=== PATIENT | male | born 1990 | race Caucasian/White ===

== ENCOUNTER 2025-06-19 11:29 | Observation (INO) ==
--- NOTE | 2025-06-19 11:43 | Emergency Department Note ---
Impression & Plan Syncope, Head injury, High serum chloride ED Provider Note NAME: GUEVARA [id number] ALEXIA AGE: 35 SEX: M : 1990 ARRIVES VIA: Ambulance INFORMANT: Patient ED PROVIDER(S): Jeffery Contreras DO CHIEF COMPLAINT: Possible seizures HPI: Patient is a 35-year-old male who presents to the ER after being seen and evaluated for fall last Sunday. Patient passed out and does not remember what happened.. He did hit his head. Since then on Sunday after being discharged he had some twitching of his arms. He was doing fine until today when he had 2 episodes where he had twitching of his bilateral arms and 1 leg. When this occurs he has no control over them. It lasts for several minutes and then resolves. He admits to a headache. No change or loss of vision. No chest pain or shortness of breath. No nausea, vomiting, or diarrhea. No neck pain. No other exacerbating or remitting factors. Headache ADDITIONAL HISTORY OBTAINED: Per HPI Chronic Medical/Social Conditions Affecting Care: Per HPI PAST MEDICAL HISTORY:See Below PAST SURGICAL HISTORY:See Below FAMILY HISTORY:See Below SOCIAL HISTORY:See Below HOME MEDICATIONS:See Below ALLERGIES:See Below VITALS:See Below PHYSICAL EXAMINATION: GENERAL: Sitting up in bed, alert, well appearing, well nourished, no distress, non-toxic EYE EXAM: normal conjunctiva. PERRL and EOM's intact. OROPHARYNX: no exudate, no erythema, lips, buccal mucosa, and tongue normal and mucous membranes are moist NECK: supple, no nuchal rigidity, no adenopathy, non-tender LUNGS: Clear to auscultation. Normal chest wall mechanics HEART: no murmurs, S1 normal and S2 normal ABDOMEN: abdomen soft, non-tender, normo-active bowel sounds, no masses, no rebound or guarding. BACK: Back is symmetrical on inspection and there is no deformity, no midline tenderness, no CVA tenderness. SKIN: no rashes and no bruising UPPER EXTREMITIES: upper extremities are grossly normal. LOWER EXTREMITIES: No pitting edema. NEURO EXAM: Normal sensorium, cranial nerves II-XII intact, normal speech, no weakness of arms, no weakness of legs. No drift. Finger to nose intact. Gross sensation intact. MEDICAL DECISION MAKING: Patient is a 35-year-old male who presents ER for the above-stated complaint. IV was established and blood work was obtained. Labs showed no significant leukocytosis or anemia. BMP with slightly elevated chloride at 109. LFTs bilirubin troponin and mag were unremarkable. Lipase was normal. CT of the head was negative. Chest x-ray unremarkable. He is complete neurologically intact. He was updated at bedside. Discussed case with [facility] neurology. They agreed with admission for complete workup including MRI and EEG. Patient and guardians were updated at bedside. Consults/Care Managements Discussions: Per [facility] Triage Nursing notes reviewed. Limited review of prior medical records performed Vital Signs: reviewed and remarkable for no significant abnormalities Differential diagnosis: Differential diagnosis includes etiologies such as infection, hypoglycemia, electrolyte abnormalities, cardiac sources, intracerebral event, trauma, toxicologic, neurologic, as well as others were entertained. ER treatment provided: See below Diagnostics interpreted by me include EKG and cardiac monitoring as listed below: -Cardiac Monitoring: An order was placed for continuous cardiac monitoring. The monitor shows a rate of 80 with sinus rhythm. -ECG: Sinus rhythm rate of 76 Normal axis No PVCs QTc 438 -Laboratory studies:Interpreted by me as stated above in MDM and shown below. Imaging studies: Xrays: As interpreted by me: Portable AP upright 1 view of the chest shows no focal infiltrate CTs show: CT head was negative per radiology Procedures:none Critical Care: None Past Med/Surg History Problem List (Updated 06/19/25 @ 14:57 by Jeffery Contreras DO) High serum chloride (Acute) Head injury (Acute) Syncope (Acute) Medical History Migraine headache without aura GERD (gastroesophageal reflux disease) Social History Smoking Status: Never smoker Preferred Language: Iranian Feels Safe at Home: Yes Allergies Allergies Allergy/AdvReac Type Severity Reaction Status Date / Time No Known Allergies Allergy Unverified 06/19/25 14:15 Home Meds Home Medications Medication Instructions Recorded Confirmed albuterol sulfate 90 mcg/actuation 2 puff inhalation QID PRN 06/19/25 06/19/25 aerosol inhaler Shortness Of Breath [id number] 250 2 tab PO BID PRN Headache 06/19/25 06/19/25 mg-250 mg-65 mg tablet budesonide-formoterol HFA 80 2 puff inhalation BID 06/19/25 06/19/25 mcg-4.5 mcg/actuation aerosol inhaler (Symbicort) clindamycin 1.2 %-benzoyl peroxide 1 applic topical HS 06/19/25 06/19/25 2.5 % topical gel with pump escitalopram oxalate 20 mg tablet 20 mg PO HS 06/19/25 06/19/25 escitalopram oxalate 5 mg tablet 5 mg PO HS 06/19/25 06/19/25 hydroxyzine pamoate 25 mg capsule 25 mg PO HS 06/19/25 06/19/25 hydroxyzine pamoate 50 mg capsule 50 mg PO HS 06/19/25 06/19/25 meclizine 25 mg chewable tablet 25 mg PO TID PRN Dizziness 06/19/25 06/19/25 topiramate 100 mg tablet 100 mg PO HS 06/19/25 06/19/25 topiramate 50 mg tablet 50 mg PO HS 06/19/25 06/19/25 Results & Data (ED) Vital Signs Vital Signs - 24 hr 06/19/25 11:34 06/19/25 11:39 06/19/25 13:58 Temperature 36.7 C Temperature Source Oral Pulse Rate 83 72 77 Pulse Rate [Apical] Pulse Rhythm [Apical] Pulse Strength [Apical] Respiratory Rate 16 23 Respiratory Effort / Characteristics Non-Labored Spontaneous Respiratory Depth Normal Respiratory Pattern Blood Pressure 119/84 119/84 Blood Pressure [Right Arm] Blood Pressure Mean 95 95 Blood Pressure Mean [Right Arm] Blood Pressure Position [Right Arm] Pulse Oximetry 96 99 Oxygen Delivery Method Room Air Sepsis Recent Fever Within 48 Hours No Sepsis New/Unexplained Change in Mental Status No Sepsis Action Taken by Nursing No Action Required 06/19/25 14:19 Temperature Temperature Source Pulse Rate Pulse Rate [Apical] 77 Pulse Rhythm [Apical] Regular Pulse Strength [Apical] Normal Respiratory Rate 16 Respiratory Effort / Characteristics Non-Labored Spontaneous Respiratory Depth Normal Respiratory Pattern Regular Blood Pressure Blood Pressure [Right Arm] 125/78 Blood Pressure Mean Blood Pressure Mean [Right Arm] 93 Blood Pressure Position [Right Arm] Lying Pulse Oximetry 100 Oxygen Delivery Method Room Air Sepsis Recent Fever Within 48 Hours Sepsis New/Unexplained Change in Mental Status Sepsis Action Taken by Nursing Laboratory Data 06/19/25 11:41 06/19/25 11:41 Lab Results 06/19/25 Range/Units 11:41 WBC 7.43 (4.8-10.8) K/ul RBC 4.88 (4.70-6.10) M/uL Hgb 14.8 (14.0-18.0) g/dl Hct 41.8 L (42.0-52.0) % MCV 85.7 (80.0-100.0) fL MCH 30.3 (25.0-34.0) pg MCHC 35.4 (32.0-36.0) g/dL RDW Std Deviation 41.5 (36.4-46.3) fL RDW Coeff of Keegan 13.3 (11.5-14.5) % Plt Count 298 (130-400) K/uL MPV 9.3 L (9.4-12.4) fL Immature Gran % (Auto) 0.1 % Neut % (Auto) 53.8 % Lymph % (Auto) 29.5 % [place] % (Auto) 10.4 % Eos % (Auto) 5.4 % Baso % (Auto) 0.8 % Neut # (Auto) 4.00 (1.40-6.50) K/uL Lymph # (Auto) 2.19 (1.20-3.40) K/uL [place] # (Auto) 0.77 H (0.11-0.59) K/uL Eos # (Auto) 0.40 (0.00-0.50) K/uL Baso # (Auto) 0.06 (0.00-0.20) K/uL Immature Gran # (Auto) 0.01 (0.01-0.20) K/uL Sodium 140 (136-145) mmol/L Potassium 3.9 (3.5-5.1) mmol/L Chloride 109 H (98-107) mmol/L Carbon Dioxide 24 (21-32) mmol/L Anion Gap 7 (3-11) BUN 12 (6-23) mg/dl Creatinine 0.99 (0.6-1.4) mg/dl Est Cr Clr Drug Dosing 112.1 ml/min eGFR 102.51 BUN/Creatinine Ratio 12.1 (10-20) Glucose 80 (70-99(Fasting)) mg/dl Calcium 8.9 (8.6-10.3) mg/dl Magnesium 2.1 (1.7-2.4) mg/dl Total Bilirubin 0.4 (0.2-1.0) mg/dl AST 21 (13-39) U/L ALT 26 (7-52) U/L Alkaline Phosphatase 102 (34-104) U/L Troponin I High Sens 2.3 (0-20) pg/ml Total Protein 8.0 (6.0-8.3) gm/dl Albumin 4.3 (3.4-5.0) gm/dl Globulin 3.7 (2.5-4.0) gm/dl Albumin/Globulin Ratio 1.2 (0.9-2) Lipase 20 (11-82) U/L Administered Medications Discontinued Medications Gadobutrol (Gadobutrol 65ml Vial) 10 ml IV ONCE ONE Stop: 06/19/25 14:50 Last Admin: 06/19/25 14:49 Dose: 10 ml Documented By: DP Imaging Data Radiologist's Impression: Head CT 06/19/25 11:36 CT head/brain wo con CLINICAL HISTORY: possible seizure. TECHNIQUE: Multiple axial CT images of the head were obtained without contrast. A dose lowering technique was utilized adhering to the principles of ALARA. CT DOSE: 625.8 mGy.cm COMPARISON: 06/12/2025 FINDINGS: No intracranial hemorrhage seen. No mass effect, midline shift, or hydrocephalus. No skull fracture seen. There is moderate mucosal thickening with a small amount of fluid at the maxillary sinuses. A few of the ethmoid air cells are opacified. IMPRESSION: 1. No acute intracranial findings. 2. Maxillary sinusitis. ACT 112: Negative or not required by law. The above report was generated using voice recognition software. It may contain grammatical, syntax or spelling errors. Electronically signed by: Chad Galindo M.D. 06/19/2025 12:06 PM Chest X-Ray 06/19/25 11:37 XR chest 1V portable CLINICAL HISTORY: Chest pain, nonspecific COMPARISON STUDY: 06/12/2025 FINDINGS: Heart size and pulmonary vasculature are normal. No consolidation or pleural effusion. No pneumothorax. IMPRESSION: No acute findings. ACT 112: Negative or not required by law. Electronically signed by: Chad Galindo M.D. 06/19/2025 12:18 PM Discharge Plan Visit Data Chief Complaint: Headache Stated Complaint: TREMORS, MIAGRAINE ED Provider: Jeffery Contreras Discharge Problem: Syncope, Head injury, High serum chloride Condition: Fair Forms Stand Alone Forms: [employer] [facility] Prescriptions Prescriptions: No Action hydroxyzine pamoate 50 mg Capsule 50 mg PO HS Rx Instructions: Take w/ 25mg to equal 75mg at bedtime albuterol sulfate 90 mcg/actuation Hfa Aerosol Inhaler 2 puff INHALATION QID PRN (Reason: Shortness Of Breath) topiramate 100 mg Tablet 100 mg PO HS Rx Instructions: Take w/ 50mg to equal 150mg at bedtime [id number] [Pain Relief Plus] 250-250-65 mg Tablet 2 tab PO BID PRN (Reason: Headache) hydroxyzine pamoate 25 mg Capsule 25 mg PO HS Rx Instructions: Take w/ 50mg to equal 75mg at bedtime meclizine 25 mg Tablet,Chewable 25 mg PO TID PRN (Reason: Dizziness) escitalopram oxalate 20 mg Tablet 20 mg PO HS Rx Instructions: Take w/ 5mg to equal 25mg at bedtime escitalopram oxalate 5 mg Tablet 5 mg PO HS Rx Instructions: Take w/ 20mg to equal 25mg at bedtime topiramate 50 mg Tablet 50 mg PO HS Rx Instructions: Take w/ 100mg to equal 150mg at bedtime budesonide-formoterol [Symbicort] 80-4.5 mcg/actuation Hfa Aerosol Inhaler 2 puff INHALATION BID clindamycin-benzoyl peroxide 1.2-2.5 % Gel With Pump 1 applic TOPICAL HS Referrals Referrals: Ronda SADLER [Primary Care Provider] - Discharge Problem: Syncope Qualifiers: Syncope type: unspecified Qualified Code(s): R55 - Syncope and collapse Head injury Qualifiers: Encounter type: initial encounter Qualified Code(s): S09.90XA - Unspecified injury of head, initial encounter
[2025-06-19 11:55] LABS: Hematocrit (blood only) 41.8 % (42.0-52.0); Hemoglobin 14.8 g/dl (14.0-18.0); Immature Granulocytes # (auto) 0.01 K/uL (0.01-0.20); Immature Granulocytes % (auto) 0.1 %; Mean Corpuscular Hemoglobin 30.3 pg (25.0-34.0); Mean Corpuscular Volume 85.7 fL (80.0-100.0); Platelet Count 298 K/uL (130-400); RDW Standard Deviation 41.5 fL (36.4-46.3); Red Blood Count 4.88 M/uL (4.70-6.10); White Blood Count 7.43 K/ul (4.8-10.8)
--- NOTE | 2025-06-19 12:09 | CT Scan Report ---
CT head/brain wo con CLINICAL HISTORY: possible seizure. TECHNIQUE: Multiple axial CT images of the head were obtained without contrast. A dose lowering tech nique was utilized adhering to the principles of ALARA. CT DOSE: 625.8 mGy.cm COMPARISON: 06/12/2025 FINDINGS: No intracranial hemorrhage seen. No mass effect, midline shift, or hydrocephalus. No skull fracture seen. There is moderate mucosal thickening with a small amount of fluid at the maxillary sin uses. A few of the ethmoid air cells are opacified. IMPRESSION: 1. No acute intracranial findings. 2. Maxillary sinusitis. ACT 112: Negative or not required by law. The above report was generated using voice recognition software. It may contain grammatical, syntax o r spelling errors. Electronically signed by: Chad Galindo M.D. 06/19/2025 12:06 PM
[2025-06-19 12:13] LABS: Alanine Aminotransferase 26.0 U/L (7-52); Albumin Globulin Ratio 1.2 (0.9-2); Alkaline Phosphatase 102.0 U/L (34-104); Anion Gap 7.0 (3-11); Bilirubin,Total 0.4 mg/dl (0.2-1.0); Blood Urea Nitrogen 12.0 mg/dl (6-23); Calcium 8.9 mg/dl (8.6-10.3); Carbon Dioxide 24.0 mmol/L (21-32); Chloride 109.0 mmol/L (98-107); Creatinine Clr Calc Pharmacy 112.1 ml/min; Globulin 3.7 gm/dl (2.5-4.0); Glucose 80.0 mg/dl (70-99(Fasting)); Lipase 20.0 U/L (11-82); Potassium 3.9 mmol/L (3.5-5.1); Sodium 140.0 mmol/L (136-145); Total Protein 8.0 gm/dl (6.0-8.3)
--- NOTE | 2025-06-19 12:19 | XRay Report ---
XR chest 1V portable CLINICAL HISTORY: Chest pain, nonspecific COMPARISON STUDY: 06/12/2025 FINDINGS: Heart size and pulmonary vasculature are normal. No consolidation or pleural effusion. No p neumothorax. IMPRESSION: No acute findings. ACT 112: Negative or not required by law. Electronically signed by: Chad Galindo M.D. 06/19/2025 12:18 PM
--- NOTE | 2025-06-19 14:39 | History & Physical Report ---
Date of Service June 19, 2025 Assessment & Plan (1) Limb tremor: (2) Head injury: Plan: Patient is 35 year old male with PMH migraine SHIELDS, GERD, asthma presented to ER with c/o "shaking" bilateral upper and lower extremities" x 2 episodes today without LOC, bowel/bladder incontinence. H/O head injury after a fall on 06/12/25 DDx: vasovagal, seizure, concussion, complex migraine CT Head: no acute intracranial abnormality CXR: no acute findings During ER course has not had any other episodes extremity shaking Obtain MRI brain EEG Seizure precautions orthostatic vitals neurology consult CBC, BMP in am (3) Migraine headache without aura: Plan: History migraine Continue topiramate #Asthma No signs exacerbation Continue home inhalers #Anxiety Continue escitalopram, hydroxyzine DVT Prophylaxis SCD Admit telemetry Full Code as per discussion with pt Currently receiving care at [facility] while incarcerated Pt was seen and care coordinated with Dr Lucas. See addendum I spent a total of 68 minutes reviewing notes, outpatient records, labs, medication, coordinating, documenting and providing care for this patient excluding time spent in the performance of separately billed services and excluding time spent by another provider/QHP. History of Present Illness Chief Complaint: "shaking" extremities Primary Care Provider: [facility] Ronda Patient is 35 year old male with PMH migraine SHIELDS, GERD, asthma presented to ER with c/o "shaking extremities". Patient reports on 06/12/25 slipped in shower and fell hitting his head. He reports he was told he had LOC at the time but is unclear if had LOC before or after the fall. Per chart review was seen at [facility] ER on 06/12/25 for head injury after reported slipped and at that time had unremarkable CT head imaging. Patient reports history migraine SHIELDS and typically will get SHIELDS without aura, without N/V, photophobia or phonophobia. Patient states that since the fall he has been having left posterior SHIELDS and pain behind left eye that he describes as throbbing sensation. he reports waking up with this SHIELDS and lasts throughout the day until he takes his topiramate at night and then he is able to sleep. He reports this feels different than his migraine SHIELDS. He denies any visual disturbance, photophobia, phonophobia. Also reports dizziness sensation described as things spinning that occurs with fast movement of his head and is without nausea or vomiting and seems to resolve with holding still. Also reports intermittent nausea. States today woke up and was cleaning the showers at 06:00 and while standing he states he felt lightheaded and sat down and had "shaking" of his bilateral upper and lower extremities that he couldn't control. He reports that he remembers incident and denies LOC, tongue biting or loss control of bowel or bladder. He reports the shaking was brief but unable to quantify length of time. He states he went to see medical and reports had another episode of feeling lightheaded and had shaking of bilateral upper and lower extremities this time reportedly lasting approximately 5 minutes. Again patient reports remembers incident and denies bowel/bladder incontinence, tongue biting. He states he has continued left posterior SHIELDS today. He reports has been using Excedrin for SHIELDS which helps some but does not completely resolve. Denies fever/chills, diaphoresis, V/D/C, vision changes, neck pain, CP, SOB, orthopnea, palpitations, cough, sore throat, rhinorrhea, abdominal pain, paresthesias, extremity weakness, extremity edema, rashes, urinary symptoms. Allergies Allergy/AdvReac Type Severity Reaction Status Date / Time No Known Allergies Allergy Unverified 06/19/25 14:15 Home Medications Medication Instructions Recorded Confirmed Type albuterol sulfate 90 mcg/actuation 2 puff inhalation QID PRN 06/19/25 06/19/25 History aerosol inhaler Shortness Of Breath ofsoxhk-djfwdagjosmpb-wmszxfze 250 2 tab PO BID PRN Headache 06/19/25 06/19/25 History mg-250 mg-65 mg tablet budesonide-formoterol HFA 80 2 puff inhalation BID 06/19/25 06/19/25 History mcg-4.5 mcg/actuation aerosol inhaler (Symbicort) clindamycin 1.2 %-benzoyl peroxide 1 applic topical HS 06/19/25 06/19/25 History 2.5 % topical gel with pump escitalopram oxalate 20 mg tablet 20 mg PO HS 06/19/25 06/19/25 History escitalopram oxalate 5 mg tablet 5 mg PO HS 06/19/25 06/19/25 History hydroxyzine pamoate 25 mg capsule 25 mg PO HS 06/19/25 06/19/25 History hydroxyzine pamoate 50 mg capsule 50 mg PO HS 06/19/25 06/19/25 History meclizine 25 mg chewable tablet 25 mg PO TID PRN Dizziness 06/19/25 06/19/25 History topiramate 100 mg tablet 100 mg PO HS 06/19/25 06/19/25 History topiramate 50 mg tablet 50 mg PO HS 06/19/25 06/19/25 History Past Med/Surg History Problem List (Updated 06/19/25 @ 15:51 by Gianna Self PA-C) Limb tremor High serum chloride (Acute) Head injury (Acute) Syncope (Acute) Medical History Migraine headache without aura GERD (gastroesophageal reflux disease) Social History Smoking Status: Never smoker Preferred Language: Colombian Feels Safe at Home: Yes Review of Systems Review of Systems: All systems reviewed & are unremarkable except as noted in HPI & below Physical Exam Physical Exam: General: no distress, WDWN Head: normocephalic, atraumatic Eyes: PERRL, EOM's intact, conjunctiva non-injected, anicteric ENT: normal inspection external ears, nose, mucous membranes moist Neck: supple, trachea midline Lungs: clear, no respiratory distress, no wheezing/rhonchi/rales CV: RRR, no murmur, no JVD, no pretibial edema Abd: normal BS, soft, non-tender Ext: no cyanosis, no calf tenderness Neuro: A&O x 3, normal affect, No nystagmus, facial sensation is intact and symmetric, face is strong and symmetric, hearing grossly intact, soft palate elevates symmetrically, no dysarthria, shoulder shrug intact, tongue is midline, normal movement, no fasciculations. Strength 5/5 throughout Skin: warm, dry Results & Data Results & Data Vital Signs (Past 12 Hours) Vital Signs Temp Pulse Pulse Resp BP BP Pulse Ox 06/19/25 14:19 77 16 125/78 100 06/19/25 13:58 77 06/19/25 11:39 72 23 119/84 99 06/19/25 11:34 36.7 C 83 16 119/84 96 O2 Del Method 06/19/25 14:19 Room Air 06/19/25 13:58 06/19/25 11:39 06/19/25 11:34 Room Air Laboratory Results Short CBC 06/19/25 Range/Units 11:41 WBC 7.43 (4.8-10.8) K/ul Hgb 14.8 (14.0-18.0) g/dl Hct 41.8 L (42.0-52.0) % Plt Count 298 (130-400) K/uL BMP 06/19/25 11:41 Sodium 140 Potassium 3.9 Chloride 109 H Carbon Dioxide 24 BUN 12 Creatinine 0.99 Glucose 80 Calcium 8.9 Liver Function 06/19/25 Range/Units 11:41 Total Bilirubin 0.4 (0.2-1.0) mg/dl AST 21 (13-39) U/L ALT 26 (7-52) U/L Alkaline Phosphatase 102 (34-104) U/L Albumin 4.3 (3.4-5.0) gm/dl Diagnostic Findings Head CT 06/19/25 11:36 CT head/brain wo con CLINICAL HISTORY: possible seizure. TECHNIQUE: Multiple axial CT images of the head were obtained without contrast. A dose lowering technique was utilized adhering to the principles of ALARA. CT DOSE: 625.8 mGy.cm COMPARISON: 06/12/2025 FINDINGS: No intracranial hemorrhage seen. No mass effect, midline shift, or hydrocephalus. No skull fracture seen. There is moderate mucosal thickening with a small amount of fluid at the maxillary sinuses. A few of the ethmoid air cells are opacified. IMPRESSION: 1. No acute intracranial findings. 2. Maxillary sinusitis. ACT 112: Negative or not required by law. The above report was generated using voice recognition software. It may contain grammatical, syntax or spelling errors. Electronically signed by: Chad Galindo M.D. 06/19/2025 12:06 PM Chest X-Ray 06/19/25 11:37 XR chest 1V portable CLINICAL HISTORY: Chest pain, nonspecific COMPARISON STUDY: 06/12/2025 FINDINGS: Heart size and pulmonary vasculature are normal. No consolidation or pleural effusion. No pneumothorax. IMPRESSION: No acute findings. ACT 112: Negative or not required by law. Electronically signed by: Chad Galindo M.D. 06/19/2025 12:18 PM Code Status & VTE Plan VTE Prophylaxis Plan VTE Prophylaxis will be ordered: Yes (2) Head injury Encounter type: initial encounter Qualified Code(s): S09.90XA - Unspecified injury of head, initial encounter
[2025-06-19] MEDS: GADOBUTROL 65ML VIAL IV ONE (14:49)
[2025-06-19 14:51] LABS: Magnesium 2.1 mg/dl (1.7-2.4)
[2025-06-19 15:07] LABS: Thyroid Stimulating Hormone 3.426 uIu/ml (0.300-4.500)
[2025-06-19 15:19] LABS: Folate (Folic Acid),Ser orPlas > 22.30 ng/ml (>5.38); Vitamin B12 417 pg/ml (180-914)
--- NOTE | 2025-06-19 15:25 | Electrocardiogram Report ---
Test Reason : Blood Pressure : */* mmHG Vent. Rate : 76 BPM Atrial Rate : 76 BPM P-R Int : 176 ms QRS Dur : 74 ms QT Int : 390 ms P-R-T Axes : -27 -13 -15 degrees QTcB Int : 438 ms Normal sinus rhythm possible Inferior infarct , age undetermined Abnormal ECG Confirmed by Olu Odonnell ([id number]) on 06/19/2025 3:25:05 PM Referred By: Confirmed By: Olu Odonnell
[2025-06-19] MEDS ORDERED: POLYETHYLENE (MIRALAX) 17 GM PACK PO PRN (19:01)
[2025-06-19] MEDS ORDERED: ONDANSETRON INJ 2 MG/ML 2 ML VIAL IV PRN (19:01)
[2025-06-19] MEDS ORDERED: ACETAMINOPHEN 325 MG TAB PO PRN (19:01)
[2025-06-19] MEDS ORDERED: ALBUTEROL HFA 8 GM INHALER INH PRN (19:01)
[2025-06-19] MEDS ORDERED: MAGNESIUM HYDROXIDE SUSP 30 ML UDC PO PRN (19:01)
[2025-06-19] MEDS: ESCITALOPRAM OXALATE 10 MG TAB PO SCH (21:03)
[2025-06-19] MEDS: TOPIRAMATE 100 MG TAB PO SCH (21:03)
[2025-06-19] MEDS: TOPIRAMATE 50 MG TAB PO SCH (21:03)
[2025-06-19] MEDS: ESCITALOPRAM OXALATE 20 MG TAB PO SCH (21:03)
[2025-06-20] MEDS: FLUTICASONE/VILANTEROL 100/25MCG 14 PUFFS/INHALER INH SCH (07:52)
[2025-06-20 08:42] LABS: Hematocrit (blood only) 41.4 % (42.0-52.0); Hemoglobin 14.5 g/dl (14.0-18.0); Mean Corpuscular Hemoglobin 30.2 pg (25.0-34.0); Mean Corpuscular Volume 86.3 fL (80.0-100.0); Platelet Count 272 K/uL (130-400); RDW Standard Deviation 42.3 fL (36.4-46.3); Red Blood Count 4.80 M/uL (4.70-6.10); White Blood Count 7.79 K/ul (4.8-10.8)
[2025-06-20 09:00] LABS: Anion Gap 8.0 (3-11); Blood Urea Nitrogen 13.0 mg/dl (6-23); Calcium 8.8 mg/dl (8.6-10.3); Carbon Dioxide 23.0 mmol/L (21-32); Chloride 109.0 mmol/L (98-107); Creatinine Clr Calc Pharmacy 104.2 ml/min; Glucose 102.0 mg/dl (70-99(Fasting)); Magnesium 2.1 mg/dl (1.7-2.4); Potassium 4.2 mmol/L (3.5-5.1); Sodium 140.0 mmol/L (136-145)
--- NOTE | 2025-06-20 09:20 | Magnetic Resonance Report ---
MRI OF THE BRAIN COMBO CLINICAL HISTORY: Tremor. Recent head injury. COMPARISON STUDY: Head CTs June 12, [address] performed earlier today. TECHNIQUE: MRI of the brain was performed utilizing various T1 and T2-weighted sequences in the axial , sagittal, and coronal planes. Contrast-enhanced sequences were acquired following the administratio n of 10 cc of Gadavist. FINDINGS: Brain parenchyma: There are no foci of restricted diffusion to suggest acute infarct. No acute intrac ranial hemorrhage, midline shift or mass effect is present. There is no intracranial mass or patholog ic enhancement. A few punctate white matter T2 hyperintense foci are of doubtful significance. Ventricles, sulci, and cisterns: There is no hydrocephalus. The basal cisterns are patent. There are no extra-axial collections. Pituitary and sella: Unremarkable. Intracranial vasculature: Flow-voids for the major intracranial vessels are present. Orbits: Orbital contents are unremarkable. Sinuses and mastoids: There is a small air-fluid level within the right maxillary sinus and mucosal t hickening of the bilateral maxillary and ethmoid sinuses. Calvarium: No calvarial lesions are identified. Cervical cord: Partially visualized cervical spinal cord is normal in morphology and signal intensity . IMPRESSION: 1. No acute intracranial findings. 2. No intracranial mass or pathologic enhancement. 3. Paranasal sinus disease, as described above. ACT 112: Negative or not required by law. Electronically signed by: Kevin Reza M.D. 06/20/2025 9:19 AM
[2025-06-20] MEDS: PHENYTOIN SODIUM ER 100 MG CAP PO SCH (10:07)
--- NOTE | 2025-06-20 11:23 | Neurology Consultation ---
Date of Consultation June 20, 2025 Assessment & Plan (1) Limb tremor: Events are less likely related to seizures with preserved consciousness and shaking all limbs. Possible anxiety or emotional reaction MRI reviewed and shows no evidence of traumatic brain injury Plan Continue topiramate at current doses for treatment of migraine. Continue escitalopram and hydroxyzine. Follow EEG can be done in or outpatient. Follow-up with out/patient neurology. Telehealth Consultation Telehealth Information Telehealth Information: I performed this visit using a real-time telehealth connection between my location and the patients location ([facility]). After connecting through interactive tele-video, patient was identified by name and date of and/or wristband check.Patient (or authorized healthcare employer relations representative) was informed that this was a telemedicine visit and it was being conducted confidentially over secure lines. My office door was closed and no one else was present in the room with me.Patient (or authorized healthcare employer relations representative) provided consent to proceed with the visit, expressed an understanding of privacy and security of the telemedicine visit, and gave permission to have a hospital employer relations representative in the room in order to assist with the visit and to conduct portions of the visit, as needed. I informed the patient (or authorized healthcare employer relations representative) that I reviewed their record and presented the opportunity for them to ask any questions regarding the visit today. The patient agreed to participate. History of Present Illness Reason for Consultation: Francois moreno Requesting Physician: Rico Perry DO Attending Physician: Rico Perry DO History of Present Illness Jorge Hernandez is a 35-year-old male patient currently a prisoner with PMH of anxiety depression, migraines, maintained on topiramate escitalopram and hydroxyzine. The patient was brought in yesterday with reports of falling in the shower the night before, the patient cannot describe how he fell he thinks he lost consciousness and fell to the ground. He was observed in the medical unit and had episodes of bilateral upper and lower extremity shaking while preserving full consciousness lasting for about 2 minutes or less, this happened twice. The patient was able to demonstrate the events with some tremors and stiffening of his upper and lower extremities without loss of consciousness, without postictal confusion, and without incontinence or loss of consciousness. Events happen when he was sitting Events did not happen again in the emergency room or in the hospital, the patient reports some dizziness after his fall that still persists on and off. He denies any current focal neurological deficits, no numbness or weakness or visual changes. Allergies Allergy/AdvReac Type Severity Reaction Status Date / Time No Known Allergies Allergy Unverified 06/19/25 14:15 Home Medications Medication Instructions Recorded Confirmed Type albuterol sulfate 90 mcg/actuation 2 puff inhalation QID PRN 06/19/25 06/19/25 History aerosol inhaler Shortness Of Breath [id number] 250 2 tab PO BID PRN Headache 06/19/25 06/19/25 History mg-250 mg-65 mg tablet budesonide-formoterol HFA 80 2 puff inhalation BID 06/19/25 06/19/25 History mcg-4.5 mcg/actuation aerosol inhaler (Symbicort) clindamycin 1.2 %-benzoyl peroxide 1 applic topical HS 06/19/25 06/19/25 History 2.5 % topical gel with pump escitalopram oxalate 20 mg tablet 20 mg PO HS 06/19/25 06/19/25 History escitalopram oxalate 5 mg tablet 5 mg PO HS 06/19/25 06/19/25 History hydroxyzine pamoate 25 mg capsule 25 mg PO HS 06/19/25 06/19/25 History hydroxyzine pamoate 50 mg capsule 50 mg PO HS 06/19/25 06/19/25 History meclizine 25 mg chewable tablet 25 mg PO TID PRN Dizziness 06/19/25 06/19/25 History topiramate 100 mg tablet 100 mg PO HS 06/19/25 06/19/25 History topiramate 50 mg tablet 50 mg PO HS 06/19/25 06/19/25 History Patient History Medical History Migraine headache without aura GERD (gastroesophageal reflux disease) Social History Smoking Status: Never smoker Second Hand Exposure: Yes (as a child); Hx Alcohol Use: No Hx Substance Use: No Preferred Language: Afghan Communication Ability: Effective Division Controller Required: No Beliefs That Will Affect Care: None Current Living Situation: Other Current Living Situation Comment: [facility] Other Information That Helps Us Care for You: No Feels Safe at Home: Yes Safety Concerns: Feels Safe At This Time Assistive Devices: Glasses Review of Systems Negative except for the points mentioned in HPI Physical Exam General Constitutional: Appearance normally developed Head and face: normocephalic and atraumatic Eyes: no ptosis, no anisocoria, and no dysconjugate gaze Respiratory: normal effort Cardiovascular: regular rhythm and regular rate Abdomen: non distended Skin: no rashes, lesions, or ulcers noted Psychiatric: normal judgement and insight, normal mood, and normal affect NEUROLOGIC EXAMINATION: Mental Status:alert, oriented to time, place, person, normal recent memory, normal remote memory, normal attention span, normal concentration, normal language and normal fund of knowledge Cranial Nerves: CN 2 - no visual defect on confrontation and pupils round, equal, reactive to light CN 3, 4, 6 - extra-ocular movements intact and no nystagmus CN 5 - facial sensation intact CN 7 - no facial asymmetry CN 8 - intact hearing CN 9, 10 - palate symmetric, normal gag CN 11 - good shoulder shrug CN 12 - tongue midline MOTOR: Strength was at least antigravity throughout, Pronator drift was absent and There were no abnormal movements SENSATION: intact and symmetric to pinprick, light touch, vibration and joint position GAIT: Deferred COORDINATION: No gross ataxia REFLEXES: cannot assess over telemedicine Results & Data Vital Signs (Past 12 Hours) Vital Signs Temp Pulse Pulse Resp BP Pulse Ox O2 Del Method 06/20/25 08:41 66 06/20/25 08:41 Room Air 06/20/25 08:12 37.1 C 83 18 137/84 96 Room Air 06/20/25 04:00 36.7 C 75 18 130/80 99 Room Air Laboratory Results Laboratory Results - last 24 hr 06/19/25 06/19/25 06/20/25 11:41 22:55 08:07 WBC 7.43 7.79 RBC 4.88 4.80 Hgb 14.8 14.5 Hct 41.8 L 41.4 L MCV 85.7 86.3 MCH 30.3 30.2 MCHC 35.4 35.0 RDW Std Deviation 41.5 42.3 RDW Coeff of Keegan 13.3 13.5 Plt Count 298 272 MPV 9.3 L 9.5 Immature Gran % (Auto) 0.1 Neut % (Auto) 53.8 Lymph % (Auto) 29.5 [place] % (Auto) 10.4 Eos % (Auto) 5.4 Baso % (Auto) 0.8 Neut # (Auto) 4.00 Lymph # (Auto) 2.19 [place] # (Auto) 0.77 H Eos # (Auto) 0.40 Baso # (Auto) 0.06 Immature Gran # (Auto) 0.01 Sodium 140 140 Potassium 3.9 4.2 Chloride 109 H 109 H Carbon Dioxide 24 23 Anion Gap 7 8 BUN 12 13 Creatinine 0.99 1.04 Est Cr Clr Drug Dosing 112.1 104.2 eGFR 102.51 96.63 BUN/Creatinine Ratio 12.1 12.5 Glucose 80 102 H Calcium 8.9 8.8 Phosphorus 2.1 L 2.1 L Magnesium 2.1 2.1 Total Bilirubin 0.4 AST 21 ALT 26 Alkaline Phosphatase 102 Troponin I High Sens 2.3 Total Protein 8.0 Albumin 4.3 Globulin 3.7 Albumin/Globulin Ratio 1.2 Lipase 20 Vitamin B12 417 Folate > 22.30 TSH 3.426 Nasal Screen MRSA (PCR) Positive A Phospholip A2 Rec IFA Cancelled Phospholip A2 Rec CECY Cancelled Diagnostic Findings CT scan of the head showed no acute ischemic infarcts no bleeding. MRI of the brain shows no evidence of traumatic brain injury no ischemic infarcts or significant changes. EKG with normal sinus rhythm CT scan of the spine shows no cervical spine fracture Medications Administered Home Medications Medication Instructions Recorded Confirmed Last Taken albuterol sulfate 90 mcg/actuation 2 puff inhalation QID PRN 06/19/25 06/19/25 Unknown aerosol inhaler Shortness Of Breath [id number] 250 2 tab PO BID PRN Headache 06/19/25 06/19/25 Unknown mg-250 mg-65 mg tablet budesonide-formoterol HFA 80 2 puff inhalation BID 06/19/25 06/19/25 Unknown mcg-4.5 mcg/actuation aerosol inhaler (Symbicort) clindamycin 1.2 %-benzoyl peroxide 1 applic topical HS 06/19/25 06/19/25 Unknown 2.5 % topical gel with pump escitalopram oxalate 20 mg tablet 20 mg PO HS 06/19/25 06/19/25 Unknown escitalopram oxalate 5 mg tablet 5 mg PO HS 06/19/25 06/19/25 Unknown hydroxyzine pamoate 25 mg capsule 25 mg PO HS 06/19/25 06/19/25 Unknown hydroxyzine pamoate 50 mg capsule 50 mg PO HS 06/19/25 06/19/25 Unknown meclizine 25 mg chewable tablet 25 mg PO TID PRN Dizziness 06/19/25 06/19/25 Unknown topiramate 100 mg tablet 100 mg PO HS 06/19/25 06/19/25 Unknown topiramate 50 mg tablet 50 mg PO HS 06/19/25 06/19/25 Unknown Active Medications Generic Name Dose Route Start Last Admin Trade Name Zaina PRN Reason Stop Dose Admin Escitalopram Oxalate 20 mg 06/19/25 21:00 06/19/25 21:03 Escitalopram Oxalate 20 Mg Tab PO 07/19/25 20:59 20 mg HS GARY Administration Escitalopram Oxalate 5 mg 06/19/25 21:00 06/19/25 21:03 Escitalopram Oxalate 10 Mg Tab PO 07/19/25 20:59 5 mg HS GARY Administration Fluticasone/Vilanterol 1 puffs 06/20/25 09:00 06/20/25 07:52 Fluticasone/Vilanterol 100/25mcg 14 Puffs/Inhaler INH 07/20/25 08:59 1 puffs DAILY GARY Administration Protocol Hydroxyzine HCl 50 mg 06/19/25 21:00 06/19/25 21:04 Hydroxyzine Hcl 25 Mg Tab PO 07/19/25 20:59 50 mg HS GARY Administration Hydroxyzine HCl 25 mg 06/19/25 21:00 06/19/25 21:11 Hydroxyzine Hcl 25 Mg Tab PO 07/19/25 20:59 25 mg HS GARY Administration Phenytoin Sodium 100 mg 06/20/25 09:00 06/20/25 10:07 Phenytoin Sodium Er 100 Mg Cap PO 07/20/25 08:59 100 mg TID GARY Administration Topiramate 100 mg 06/19/25 21:00 06/19/25 21:03 Topiramate 100 Mg Tab PO 07/19/25 20:59 100 mg HS GARY Administration Topiramate 50 mg 06/19/25 21:00 06/19/25 21:03 Topiramate 50 Mg Tab PO 07/19/25 20:59 50 mg HS GARY Administration ECG Additional Comments: NSR
[2025-06-20 11:33] VITALS: RESP 16; TEMP 98.1; O2SAT 97
--- NOTE | 2025-06-20 12:38 | Discharge Summary ---
Discharge Summary Date of Service June 20, 2025 Principal Dx & Hospital Course #1 = Principal Diagnosis (1) Limb tremor: (2) Concussion: (3) Post-concussion headache: (4) Acute anxiety: (5) Head injury: Plan Patient 35-year-old prisoner presented to the emergency room with complaints of tremor in all extremities. Patient did have recent head trauma After falling in the shower. Patient reportedly had 2 of these episodes where his arms and legs shook but did not lose consciousness, did not you lose bowel or bladder, did not bite his tongue. In the emergency room workup was unremarkable but was referred for further evaluation. Patient was moderate in the hospital. He had no further episodes. He continued to have headache but was tolerable. Patient underwent MRI of the brain which was unremarkable. Was evaluated by neurology. Neurology did not feel as though this was any type of seizure presentation. Recommend he continue his current medications. Patient did have significant head trauma. Suspect he did have a concussion. Suspect some of his symptoms may be part of the constellation of postconcussive syndrome. Will increase his topiramate 50 mg 2 times daily for about 7 to 10 days. Then can resume his usual dosing just at bedtime. Continue with his usual care and follow-up with specialist as previously arranged. Will be discharged to the snf. Spoke with the covering provider from [facility]. Notes For Next Care Provider Medication Changes From Visit Topiramate 50 mg in the morning in addition to the 150 mg at bedtime Admission HPI Per Admitting Provider Patient is 35 year old male with PMH migraine SHIELDS, GERD, asthma presented to ER with c/o "shaking extremities". Patient reports on 06/12/25 slipped in shower and fell hitting his head. He reports he was told he had LOC at the time but is unclear if had LOC before or after the fall. Per chart review was seen at [facility] ER on 06/12/25 for head injury after reported slipped and at that time had unremarkable CT head imaging. Patient reports history migraine SHIELDS and typically will get SHIELDS without aura, without N/V, photophobia or phonophobia. Patient states that since the fall he has been having left posterior SHIELDS and pain behind left eye that he describes as throbbing sensation. he reports waking up with this SHIELDS and lasts throughout the day until he takes his topiramate at night and then he is able to sleep. He reports this feels different than his migraine SHIELDS. He denies any visual disturbance, photophobia, phonophobia. Also reports dizziness sensation described as things spinning that occurs with fast movement of his head and is without nausea or vomiting and seems to resolve with holding still. Also reports intermittent nausea. States today woke up and was cleaning the showers at 06:00 and while standing he states he felt lightheaded and sat down and had "shaking" of his bilateral upper and lower extremities that he couldn't control. He reports that he remembers incident and denies LOC, tongue biting or loss control of bowel or bladder. He reports the shaking was brief but unable to quantify length of time. He states he went to see medical and reports had another episode of feeling lightheaded and had shaking of bilateral upper and lower extremities this time reportedly lasting approximately 5 minutes. Again patient reports remembers incident and denies bowel/bladder incontinence, tongue biting. He states he has continued left posterior SHIELDS today. He reports has been using Excedrin for SHIELDS which helps some but does not completely resolve. Denies fever/chills, diaphoresis, V/D/C, vision changes, neck pain, CP, SOB, orthopnea, palpitations, cough, sore throat, rhinorrhea, abdominal pain, paresthesias, extremity weakness, extremity edema, rashes, urinary symptoms. Admission Exam Per Admitting Provider See H&P Discharge Exam Constitutional: Alert HEENT: Mucous membranes moist. Lungs: Clear to auscultation, decreased, no wheezes rales or rhonchi CV: S1-S2, regular Abdomen: Soft, nontender, nondistended Extremities: No significant edema Neuro: No focal deficits Psych: Cooperative, normal mood Updated Medication List Medication Instructions Recorded Confirmed Type albuterol sulfate 90 mcg/actuation 2 puff inhalation QID PRN 06/19/25 06/19/25 History aerosol inhaler Shortness Of Breath [id number] 250 2 tab PO BID PRN Headache 06/19/25 06/19/25 History mg-250 mg-65 mg tablet budesonide-formoterol HFA 80 2 puff inhalation BID 06/19/25 06/19/25 History mcg-4.5 mcg/actuation aerosol inhaler (Symbicort) clindamycin 1.2 %-benzoyl peroxide 1 applic topical HS 06/19/25 06/19/25 History 2.5 % topical gel with pump escitalopram oxalate 20 mg tablet 20 mg PO HS 06/19/25 06/19/25 History escitalopram oxalate 5 mg tablet 5 mg PO HS 06/19/25 06/19/25 History hydroxyzine pamoate 25 mg capsule 25 mg PO HS 06/19/25 06/19/25 History hydroxyzine pamoate 50 mg capsule 50 mg PO HS 06/19/25 06/19/25 History meclizine 25 mg chewable tablet 25 mg PO TID PRN Dizziness 06/19/25 06/19/25 History topiramate 100 mg tablet 100 mg PO HS 06/19/25 06/19/25 History topiramate 50 mg tablet 50 mg PO BID #0 tabs 06/20/25 06/19/25 Rx Hospital Stay Data Consultations 06/19/25 13:13 ED Decision to Admit Stat 06/19/25 19:01 Consult Neurology Routine Diagnostic Imagining Performed 06/19/25 11:36 CT head/brain wo con Stat 06/19/25 13:39 MRI Brain [MR brain wo/w con] Routine Reviewed imaging, laboratory and diagnostic studies. Pertinent findings as be low. MRI of the brain negative for acute findings no mass or pathological enhancements CBC stable Electrolytes stable Creatinine 1.04 EKG normal sinus rhythm Pending Results Patient Have Any Pending Studies at Discharge: No Discharge Instructions Given to Patient (Per Discharging Provider) Suspect a lot of your symptoms are due to concussion you sustained when you fell in the shower. Anticipate that these will improve with time and rest Total Time Total Time Spent Total Time Spent (In Minutes): 38
[2025-06-20 12:39] VITALS: BP 129/81; PULSE 74
== END 2025-06-20 14:11 | DRG 93 ==
LOC: ED 11:29 → SUATTDRO 14:03 → 2N 14:03 → INTOOBSV 14:03 → 2N 17:32